=== PATIENT | female | born 1945 | race Caucasian/White ===

== ENCOUNTER 2019-05-08 11:35 | Emergency (ER) | payer OTHER ==
[2019-05-08 15:00] VITALS: BP 116/38
== END 2019-05-08 15:43 | disposition home or self-care (01) ==
LOC: ED 11:35
DX: M79.10 Myalgia, unspecified site (principal); M79.661 Pain in right lower leg; I10 Essential (primary) hypertension; E11.9 Type 2 diabetes mellitus without complications
CPT/HCPCS: Q0092